=== PATIENT | female | born 1945 | race African-American/Black ===

== ENCOUNTER 2021-11-09 08:37 | Inpatient (IN) ==
[2021-11-09] MEDS ORDERED: ALBUTEROL/IPRATROPIUM 3 ML NEB RESP TX STA (09:26)
[2021-11-09] MEDS ORDERED: HydrOXYzine PAMOATE 25 MG CAPSULE PO STA (09:26)
[2021-11-09 09:54] LABS: Eosinophils % 0.2 % (0.00-10.9); Hematocrit 32.1 VOL% (35.7-47.0); Hemoglobin 10.8 GM/DL (12.0-16.0); Immature Granulocytes % 0.7 %; Immature Granulocytes Absolute 0.04 #; Lymphocytes # 1.8 10*3/uL (1.4-4.0); Lymphocytes % 30.4 % (21.3-54.2); Mean Corpuscular HGB Conc 33.6 GM/DL (32-36); Mean Corpuscular Volume 79.7 FL (87-102); Mean Platelet Volume 9.1 FL (9.6-12.0); Monocytes # 0.5 10*3/uL (0.11-0.8); Monocytes % 8.6 % (1.7-12.7); Neutrophils % 60.1 % (38.7-73.9); Platelet Count 209 T/CUMM (130-400); Red Blood Count 4.03 MC/CUMM (3.8-5.5); Red Cell Distribution Width 16.5 % (9.3-17.3); White Blood Count 5.8 T/CUMM (4-12)
[2021-11-09 10:06] LABS: INR 0.9; PT Patient Result 10.3 SECS (10.5-12.0); Partial Thromboplastin Time 32.9 SECS (23.7-32.9)
[2021-11-09 10:18] LABS: Albumin 3.6 G/DL (3.4-5.0); Bilirubin,Total 0.4 MG/DL (0.20-1.00); Calcium 9.2 MG/DL (8.5-10.1); Osmolality,Calculated 263.5 MOS/KG (273-304); Potassium 3.6 MMOL/L (3.5-5.1); Total Protein 6.7 G/DL (6.4-8.2)
[2021-11-09 10:30] LABS: Bacteria,Urine Occasional /HPF (Few); RBC,Urine 1 /HPF (0-4); Squamous Epithelial Cell,Urine Occasional /HPF (0-10)
[2021-11-09 10:31] LABS: Bilirubin,Urine Negative (Negative); Blood, Urine Negative (Negative); Glucose,Urine (UA) Negative (Negative); Ketones,Urine 15 mg/dL (Negative); Nitrite,Urine Negative (Negative); Protein,Urine 30 mg/dL (Negative); Urine Appearance Clear (Clear); Urine Color Yellow (Yellow); Urine Specific Gravity < 1.005 (1.001-1.035); Urine Urobilinogen 0.2 eU/dL (<2.0)
[2021-11-09] MEDS ORDERED: cefTRIAXone 1,000 MG in SODIUM CHLORIDE 0.9% 100 ML IV STA (10:36)
[2021-11-09] MEDS ORDERED: FUROSEMIDE 100 MG/10 ML VIAL IV STA ×2 (10:39→10:42)
[2021-11-09] MEDS ORDERED: DEXTROSE 10% 250 ML BAG IV PRN (11:26)
[2021-11-09] MEDS ORDERED: hydrALAZINE 20 MG/1 ML VIAL IV ONE (11:26)
[2021-11-09] MEDS ORDERED: hydrALAZINE 20 MG/1 ML VIAL IV PRN (11:26)
[2021-11-09] MEDS ORDERED: GLUCAGON 1 MG VIAL IM PRN (11:26)
[2021-11-09] MEDS ORDERED: DOCUSATE SODIUM 100 MG CAPSULE PO PRN (11:26)
[2021-11-09] MEDS ORDERED: ACETAMINOPHEN 325 MG TABLET PO PRN (11:26)
[2021-11-09] MEDS ORDERED: ONDANSETRON 4 MG/2 ML VIAL IV PRN (11:26)
[2021-11-09 12:01] LABS: Risk Ratio 1.61; Thyroid Stimulating Hormone 3.96 uIU/ml (0.358-3.74); VLDL Cholesterol 13.6 MG/DL
[2021-11-09] MEDS: hydrALAZINE 25 MG TABLET PO SCH ×2 (17:03→21:32)
[2021-11-09] MEDS: ENOXAPARIN 40 MG/0.4 ML SYRINGE SUBCUT SCH (17:04)
[2021-11-09] MEDS: ROSUVASTATIN 10 MG TABLET PO SCH (21:32)
[2021-11-09] MEDS: FUROSEMIDE 40 MG/4 ML VIAL IV SCH (21:33)
[2021-11-10 05:32] LABS: Basophils % 0.2 % (0.0-0.8); Eosinophils # 0.1 10*3/uL (0.0-0.87); Eosinophils % 1.1 % (0.00-10.9); Hematocrit 29.3 VOL% (35.7-47.0); Hemoglobin 9.9 GM/DL (12.0-16.0); Immature Granulocytes % 0.4 %; Immature Granulocytes Absolute 0.02 #; Lymphocytes # 3.1 10*3/uL (1.4-4.0); Lymphocytes % 56.5 % (21.3-54.2); Mean Corpuscular HGB Conc 33.8 GM/DL (32-36); Monocytes # 0.6 10*3/uL (0.11-0.8); Monocytes % 11.1 % (1.7-12.7); Neutrophils % 30.7 % (38.7-73.9); Platelet Count 193 T/CUMM (130-400); Red Blood Count 3.71 MC/CUMM (3.8-5.5); Red Cell Distribution Width 16.3 % (9.3-17.3); White Blood Count 5.5 T/CUMM (4-12)
[2021-11-10 05:54] LABS: Osmolality,Calculated 275.5 MOS/KG (273-304); Potassium 3.3 MMOL/L (3.5-5.1)
[2021-11-10 06:37] LABS: Eosinophils 3 % (0-10); Lymphocytes 57 % (20-55); Total Cells Counted 100
[2021-11-10 06:38] LABS: Hypochromia Slight; Ovalocytes Few; Platelet Estimate Adequate; Polychromasia Slight; Reactive Lymphocytes Few; Target Cells Few
[2021-11-10] MEDS: SERTRALINE 25 MG TABLET PO SCH (08:43)
[2021-11-10] MEDS: PANTOPRAZOLE 40 MG TABLET PO SCH (08:43)
[2021-11-10] MEDS: ISOSORBIDE MONONITRATE 30 MG TABLET PO SCH (08:43)
[2021-11-10] MEDS: ASPIRIN CHEW 81 MG TABLET PO SCH (08:43)
[2021-11-10] MEDS: METOPROLOL SUCCINATE XL 50 MG TABLET PO SCH (08:44)
[2021-11-10] MEDS: OLMESARTAN 20 MG TABLET PO SCH (08:44)
[2021-11-10] MEDS: MULTIVITAMIN (CENTRUM) TABLET PO SCH (08:44)
[2021-11-10] MEDS: hydrALAZINE 25 MG TABLET PO SCH ×2 (08:45→16:40)
[2021-11-10] MEDS: POTASSIUM CHLORIDE 20 MEQ TABLET PO SCH (10:47)
[2021-11-10] MEDS: FUROSEMIDE 40 MG/4 ML VIAL IV SCH ×2 (13:16→16:40)
[2021-11-10] MEDS: ENOXAPARIN 40 MG/0.4 ML SYRINGE SUBCUT SCH (13:20)
[2021-11-10] MEDS: ROSUVASTATIN 10 MG TABLET PO SCH (20:34)
[2021-11-11] MEDS: hydrALAZINE 25 MG TABLET PO SCH ×4 (01:14→21:05)
[2021-11-11 05:35] LABS: Basophils % 0.2 % (0.0-0.8); Eosinophils # 0.2 10*3/uL (0.0-0.87); Eosinophils % 3.4 % (0.00-10.9); Hematocrit 30.1 VOL% (35.7-47.0); Immature Granulocytes % 0.4 %; Immature Granulocytes Absolute 0.02 #; Lymphocytes # 2.8 10*3/uL (1.4-4.0); Lymphocytes % 53.1 % (21.3-54.2); Mean Corpuscular HGB Conc 33.2 GM/DL (32-36); Mean Corpuscular Volume 80.1 FL (87-102); Mean Platelet Volume 9.3 FL (9.6-12.0); Monocytes # 0.6 10*3/uL (0.11-0.8); Monocytes % 11.1 % (1.7-12.7); Neutrophils % 31.8 % (38.7-73.9); Platelet Count 174 T/CUMM (130-400); Red Blood Count 3.76 MC/CUMM (3.8-5.5); Red Cell Distribution Width 16.5 % (9.3-17.3); White Blood Count 5.2 T/CUMM (4-12)
[2021-11-11 06:01] LABS: Atypical Lymphocytes Few; Eosinophils 4 % (0-10); Lymphocytes 62 % (20-55); Total Cells Counted 100
[2021-11-11 06:02] LABS: Hypochromia Slight; Microcytosis 1+; Platelet Estimate Adequate; Target Cells Slight
[2021-11-11 06:09] LABS: Calcium 9.2 MG/DL (8.5-10.1); Osmolality,Calculated 281.3 MOS/KG (273-304); Potassium 3.4 MMOL/L (3.5-5.1)
[2021-11-11] MEDS: ASPIRIN CHEW 81 MG TABLET PO SCH (08:49)
[2021-11-11] MEDS: FUROSEMIDE 40 MG/4 ML VIAL IV SCH ×2 (09:16→17:05)
[2021-11-11] MEDS: MULTIVITAMIN (CENTRUM) TABLET PO SCH (09:17)
[2021-11-11] MEDS: POTASSIUM CHLORIDE 20 MEQ TABLET PO SCH (09:17)
[2021-11-11] MEDS: PANTOPRAZOLE 40 MG TABLET PO SCH (09:17)
[2021-11-11] MEDS: METOPROLOL SUCCINATE XL 50 MG TABLET PO SCH (09:17)
[2021-11-11] MEDS: OLMESARTAN 20 MG TABLET PO SCH (09:17)
[2021-11-11] MEDS: ISOSORBIDE MONONITRATE 30 MG TABLET PO SCH (09:17)
[2021-11-11] MEDS: SERTRALINE 25 MG TABLET PO SCH (09:18)
[2021-11-11] MEDS: ENOXAPARIN 40 MG/0.4 ML SYRINGE SUBCUT SCH (13:14)
[2021-11-11] MEDS: ROSUVASTATIN 10 MG TABLET PO SCH (21:05)
[2021-11-12 05:16] LABS: Basophils % 0.2 % (0.0-0.8); Eosinophils # 0.1 10*3/uL (0.0-0.87); Eosinophils % 2.4 % (0.00-10.9); Hematocrit 29.5 VOL% (35.7-47.0); Hemoglobin 9.9 GM/DL (12.0-16.0); Immature Granulocytes % 0.4 %; Immature Granulocytes Absolute 0.02 #; Lymphocytes # 3.4 10*3/uL (1.4-4.0); Lymphocytes % 63.8 % (21.3-54.2); Mean Corpuscular HGB Conc 33.6 GM/DL (32-36); Mean Corpuscular Volume 78.9 FL (87-102); Mean Platelet Volume 9.4 FL (9.6-12.0); Monocytes # 0.5 10*3/uL (0.11-0.8); Monocytes % 9.6 % (1.7-12.7); Neutrophils % 23.6 % (38.7-73.9); Platelet Count 171 T/CUMM (130-400); Red Blood Count 3.74 MC/CUMM (3.8-5.5); Red Cell Distribution Width 16.2 % (9.3-17.3); White Blood Count 5.3 T/CUMM (4-12)
[2021-11-12 05:37] LABS: Calcium 9.4 MG/DL (8.5-10.1); Osmolality,Calculated 273.8 MOS/KG (273-304); Potassium 3.6 MMOL/L (3.5-5.1)
[2021-11-12 05:40] LABS: Atypical Lymphocytes Few; Eosinophils 3 % (0-10); Hypochromia 1+; Lymphocytes 62 % (20-55); Microcytosis 1+; Platelet Estimate Adequate; Target Cells Slight; Total Cells Counted 100
[2021-11-12] MEDS: OLMESARTAN 20 MG TABLET PO SCH (10:02)
[2021-11-12] MEDS: ISOSORBIDE MONONITRATE 30 MG TABLET PO SCH (10:02)
[2021-11-12] MEDS: ASPIRIN CHEW 81 MG TABLET PO SCH (10:03)
[2021-11-12] MEDS: hydrALAZINE 25 MG TABLET PO SCH (10:03)
[2021-11-12] MEDS: POTASSIUM CHLORIDE 20 MEQ TABLET PO SCH (10:03)
[2021-11-12] MEDS: SERTRALINE 25 MG TABLET PO SCH (10:04)
[2021-11-12] MEDS: FUROSEMIDE 40 MG/4 ML VIAL IV SCH (10:04)
[2021-11-12] MEDS: METOPROLOL SUCCINATE XL 50 MG TABLET PO SCH (10:04)
[2021-11-12] MEDS: MULTIVITAMIN (CENTRUM) TABLET PO SCH (10:04)
[2021-11-12] MEDS: PANTOPRAZOLE 40 MG TABLET PO SCH (10:05)
[2021-11-12 12:25] VITALS: BP 131/68
== END 2021-11-12 13:25 | disposition home health service (06) | DRG 291 ==
LOC: N.ED 08:37 → SUATTDRO 11:26 → N.EDINP 11:26 → N.TELEN 13:18
PROVIDERS: ADMIT Internal Medicine; ATTEND Emergency Medicine